=== PATIENT | female | born 1970 | race Asian ===

== ENCOUNTER 2022-10-05 13:03 | Emergency (ER) | payer OTHER ==
[~2022-10-05] VITALS: Ht 152.4 cm; Wt 49.9 kg
[2022-10-05] MEDS ORDERED: METOCLOPRAMIDE HCL 10 MG/2ML VIAL ONE (13:25)
[2022-10-05] MEDS ORDERED: SODIUM CHLORIDE 0.9% 1000ML 1,000 ML ONE (13:25)
[2022-10-05] MEDS ORDERED: METOCLOPRAMIDE HCL 10 MG/2ML VIAL IV STA (13:29)
[2022-10-05] MEDS ORDERED: PROMETHAZINE HCL (IM) 25 MG/ML VIAL IM PRN (13:30)
[2022-10-05] MEDS ORDERED: SODIUM CHLORIDE 0.9% 1000ML 1,000 ML IV ONE (13:30)
[2022-10-05 13:56] LABS: BASOPHILS % 0.3 % (0.0-1.0); HEMATOCRIT 38.3 % (34.2-44.1); HEMOGLOBIN 12.8 g/dL (12.0-16.0); LYMPHOCYTES # (AUTO) 0.9 (1.0-3.2); LYMPHOCYTES % 11.7 % (18.0-39.1); MEAN CORPUSCULAR HEMOGLOBIN 31.2 pg (28-32); MEAN CORPUSCULAR HGB CONC 33.4 g/dL (31-35); MEAN CORPUSCULAR VOLUME 93.4 fL (81-99); MONOCYTES # (AUTO) 0.5 (0.2-0.8); MONOCYTES % 6.8 % (4.4-11.3); NEUTROPHILS # (AUTO) 6.2 (2.1-6.9); NEUTROPHILS % 80.7 % (38.7-80.0); PLATELET COUNT 226 x10e3/uL (140-360); RED CELL DISTRIBUTION WIDTH 13.9 % (11.7-14.4)
[2022-10-05 14:11] LABS: ALBUMIN 4.3 g/dL (3.5-5.0); ALBUMIN/GLOBULIN RATIO 1.5 (0.8-2.0); ANION GAP 19.3 mmol/L (8-16); CALCIUM 9.4 mg/dL (8.4-10.2); CREATININE, SERUM 0.72 mg/dL (0.57-1.11); POTASSIUM 3.3 mmol/L (3.5-5.1)
[2022-10-05] MEDS ORDERED: DEXTROSE 5%/LACTATED RINGERS 1,000 ML IV ONE ×2 (14:45→16:45)
[2022-10-05] MEDS ORDERED: HALOPERIDOL LACTATE 5 MG/ML VIAL IV ONE (14:45)
[2022-10-05] MEDS ORDERED: DIPHENHYDRAMINE HCL INJ 50 MG/ML VIAL IV ONE (14:45)
[2022-10-05] MEDS ORDERED: DEXAMETHASONE SOD PHOS 10 MG/1 ML VIAL IV ONE (15:00)
[2022-10-05] MEDS ORDERED: PROMETHAZINE HC25 MG PR (17:08)
[2022-10-05] MEDS ORDERED: MECLIZINE HCL 12.5 MG TAB PO ONE (17:15)
[2022-10-05 17:57] VITALS: BP 122/84
[2022-10-05] MEDS ORDERED: METOCLOPRAMIDE HCL 10 MG/2ML VIAL IV SCH (18:00)
== END 2022-10-05 18:50 | disposition home or self-care (01) ==
LOC: ER 13:17
DX: R11.2 Nausea with vomiting, unspecified (principal); T80.89XA Other complications following infusion, transfusion and therapeutic injection, initial encounter; R42 Dizziness and giddiness; C18.9 Malignant neoplasm of colon, unspecified
CPT/HCPCS: 36415; 70551; 74018; 80053; 83690; 85025; 99284; J1100; J1200; J1630; J2550; J2765; J7030; J7121; J8597